=== PATIENT | male | born 1955 | race Caucasian/White ===

== ENCOUNTER 2017-11-26 11:15 | Observation (INO) | payer OTHER ==
[~2017-11-26] VITALS: Ht 170.2 cm; Wt 78.7 kg
[2017-11-26 11:24] VITALS: Ht 170.2 cm; Wt 78.7 kg
[2017-11-26 11:45] LABS: BASOPHIL % 0.4 % (0-2); PLATELET COUNT 189 x10^3mcL (130-400); RED CELL DISTRIBUTION WIDTH 13.3 % (11.5-14.5)
[2017-11-26] MEDS ORDERED: ATORVASTATIN CA40 M1 PO (12:04)
[2017-11-26] MEDS ORDERED: METFORMIN HYDR500 M1 PO (12:04)
[2017-11-26] MEDS ORDERED: NORCO1 TA2 PO (12:04)
[2017-11-26 12:06] LABS: CALCIUM 8.3 mg/dL (8.5-10.1); CARBON DIOXIDE 17.8 mmol/L (21-32); CHLORIDE SERUM 100 mmol/L (98-107); CREATININE SERUM 1.2 mg/dL (0.7-1.3); GFR1 > 60 mL/min; GLUCOSE SERUM 289 mg/dL (74-106); SODIUM SERUM 133 mmol/L (136-145)
[2017-11-26 14:14] VITALS: BP 129/73
[2017-11-26 14:17] LABS: TOTAL IRON BINDING CAPACITY 254 ug/dL (250-450)
[2017-11-26 14:25] LABS: IRON 239 ug/dL (65-170)
[2017-11-26 14:32] LABS: FREE T4 1.09 ng/dL (0.76-1.46); FREE THYROXINE INDEX 2.6 ug/dL (1.4-4.5); T4(THYROXINE) 6.9 ug/dL (4.7-13.3)
[2017-11-26 14:47] LABS: T3 TOTAL 0.97 ng/mL
[2017-11-26 14:55] LABS: RED BLOOD CELLS 3.21 M/mm3 (4.52-5.90)
[2017-11-26 15:13] LABS: MAGNESIUM 1.8 mg/dL (1.8-2.4); PHOSPHOROUS 2.8 mg/dL (2.5-4.9)
[2017-11-26 15:19] LABS: CHOLESTEROL/HDL RATIO 4.3
[2017-11-26 15:33] LABS: CALCIUM 8.2 mg/dL (8.5-10.1); CARBON DIOXIDE 16.9 mmol/L (21-32); CREATININE SERUM 1.3 mg/dL (0.7-1.3); POTASSIUM SERUM 4.1 mmol/L (3.5-5.1)
[2017-11-26 17:07] LABS: BILIRUBIN DIRECT 0.52 mg/dL (0.0-0.2); BILIRUBIN TOTAL 1.8 mg/dL (0.20-1.00); TOTAL PROTEIN, SERUM 6.3 g/dL (6.4-8.2)
[2017-11-26 18:46] LABS: microscopic required? NO
[2017-11-26 18:53] LABS: urine erythrocyte NEGATIVE (NEGATIVE)
[2017-11-26 21:45] VITALS: BP 102/60
[2017-11-27 06:00] VITALS: BP 108/63
[2017-11-27 06:37] LABS: BASOPHIL % 0.8 % (0-2); PLATELET COUNT 135 x10^3mcL (130-400); RED CELL DISTRIBUTION WIDTH 14.1 % (11.5-14.5)
[2017-11-27 06:53] LABS: CALCIUM 7.4 mg/dL (8.5-10.1); CARBON DIOXIDE 22.7 mmol/L (21-32); CHLORIDE SERUM 107 mmol/L (98-107); CREATININE SERUM 0.8 mg/dL (0.7-1.3); GFR1 > 60 mL/min; GLUCOSE SERUM 164 mg/dL (74-106); MAGNESIUM 1.9 mg/dL (1.8-2.4); PHOSPHOROUS 3.3 mg/dL (2.5-4.9); POTASSIUM SERUM 3.9 mmol/L (3.5-5.1); SODIUM SERUM 140 mmol/L (136-145)
[2017-11-27 08:44] VITALS: BP 137/55
[2017-11-27 12:53] VITALS: BP 111/66
[2017-11-27 16:30] VITALS: BP 95/50
[2017-11-27] MEDS ORDERED: HEP100I IV (17:13)
[2017-11-27] MEDS ORDERED: HEP5I IV (17:13)
[2017-11-27] MEDS ORDERED: ATORVASTATIN CA40 M1 PO (17:14)
[2017-11-27] MEDS ORDERED: NIT0.4 SL (17:14)
[2017-11-27] MEDS ORDERED: METOPROLOL TART25 M1 PO (17:14)
[2017-11-27] MEDS ORDERED: ZES5 PO (17:14)
[2017-11-27] MEDS ORDERED: APAP/HYDROCODON1 T13 PO (17:14)
[2017-11-27] MEDS ORDERED: BG FS (17:15)
[2017-11-27] MEDS ORDERED: TYL325 PO (17:15)
[2017-11-27] MEDS ORDERED: AMB5 PO (17:15)
[2017-11-27] MEDS ORDERED: ATI1 PO (17:15)
[2017-11-27] MEDS ORDERED: ATI2I IV (17:15)
[2017-11-27] MEDS ORDERED: PRI20 PO (17:16)
[2017-11-27] MEDS ORDERED: LAC PO (17:16)
[2017-11-27] MEDS ORDERED: ZOFI IV (17:16)
[2017-11-27] MEDS ORDERED: DEXPF IV (17:16)
[2017-11-27 19:15] VITALS: BP 105/54
[2017-11-27 21:49] VITALS: BP 105/54
== END 2017-11-27 22:25 | disposition short-term general hospital (02) | DRG 205 ==
LOC: ED 11:15 → DU 11:45
PROVIDERS: Emergency Medicine; Family Medicine
DX: M94.0 Chondrocostal junction syndrome [Tietze] (principal); N17.0 Acute kidney failure with tubular necrosis; D62 Acute posthemorrhagic anemia; E44.0 Moderate protein-calorie malnutrition; E87.1 Hypo-osmolality and hyponatremia; E11.65 Type 2 diabetes mellitus with hyperglycemia; K57.90 Diverticulosis of intestine, part unspecified, without perforation or abscess without bleeding; B02.9 Zoster without complications; R74.0 Nonspecific elevation of levels of transaminase and lactic acid dehydrogenase [LDH]; K21.9 Gastro-esophageal reflux disease without esophagitis; K70.0 Alcoholic fatty liver; I25.10 Atherosclerotic heart disease of native coronary artery without angina pectoris; M19.90 Unspecified osteoarthritis, unspecified site; F10.20 Alcohol dependence, uncomplicated; Z79.84 Long term (current) use of oral hypoglycemic drugs; Z68.25 Body mass index [BMI] 25.0-25.9, adult
CPT/HCPCS: 82962; 83880; 84439; 87046; 87046-59; G0378; G0480; J1644; J1956; J3010; J3490; J7030; Q0092